=== PATIENT | female | born 1955 | race Caucasian/White ===

== ENCOUNTER → 2016-05-01 | Outpatient (CLI) | payer SELFPAY | END | disposition home or self-care (01) | LOC: GMAB 10:40 | PROVIDERS: ATTEND Family Medicine | DX: N39.0 Urinary tract infection, site not specified (principal) ==

== ENCOUNTER → 2017-02-11 | Outpatient (CLI) | payer OTHER | END | disposition home or self-care (01) | LOC: GMAB 11:37 | PROVIDERS: ATTEND Family Medicine | DX: N39.0 Urinary tract infection, site not specified (principal); Z00.00 Encounter for general adult medical examination without abnormal findings ==

== ENCOUNTER → 2017-08-13 | Outpatient (CLI) | payer OTHER | LOC: GMAB 17:40 | PROVIDERS: ATTEND Family Medicine | DX: D51.9 Vitamin B12 deficiency anemia, unspecified (principal); D50.9 Iron deficiency anemia, unspecified; D64.9 Anemia, unspecified ==

== ENCOUNTER → 2018-12-16 | Outpatient (CLI) | payer MEDICARE, OTHER | LOC: GMAE 11:08 | PROVIDERS: ATTEND Family Medicine | DX: I10 Essential (primary) hypertension (principal); R94.6 Abnormal results of thyroid function studies ==